=== PATIENT | female | born 1980 | race American Indian/Alaskan Native ===

== ENCOUNTER 2020-03-28 08:03 | Emergency (ER) | payer SELFPAY ==
[2020-03-28 08:12] VITALS: BP 136/75
--- NOTE | 2020-03-28 09:24 | Emergency Department Report ---
ED ENT HPI - General Chief complaint: Dental/Oral Stated complaint: TOOTHACHE Time Seen by Provider: 03/28/20 09:16 Source: patient Mode of arrival: Ambulatory Limitations: No Limitations - History of Present Illness MD complaint: tooth pain -: Gradual Location: tooth # Severity: mild, moderate Quality: dull Consistency: constant Improves with: none Worsens with: eating Context- Dental: history of dental caries, poor dental care Associated Symptoms: toothache - Related Data Previous Rx's Medication Instructions Recorded Last Taken Type Amoxicillin [Amoxicillin TAB] 875 mg PO BID #20 tablet 03/28/20 Unknown Rx Chlorhexidine Mouthwash [Peridex] 15 ml MM BID #1 bottle 03/28/20 Unknown Rx Ketorolac [Toradol] 10 mg PO Q6H PRN #15 tablet 03/28/20 Unknown Rx Lidocaine Viscous 2% 5 ml MM Q3H PRN #120 udc 03/28/20 Unknown Rx Allergies Allergy/AdvReac Type Severity Reaction Status Date / Time No Known Allergies Allergy Unverified 03/28/20 08:07 ED Dental HPI - General Chief complaint: Dental/Oral Stated complaint: TOOTHACHE Time Seen by Provider: 03/28/20 09:16 Source: patient Mode of arrival: Ambulatory Limitations: No Limitations - Related Data Previous Rx's Medication Instructions Recorded Last Taken Type Amoxicillin [Amoxicillin TAB] 875 mg PO BID #20 tablet 03/28/20 Unknown Rx Chlorhexidine Mouthwash [Peridex] 15 ml MM BID #1 bottle 03/28/20 Unknown Rx Ketorolac [Toradol] 10 mg PO Q6H PRN #15 tablet 03/28/20 Unknown Rx Lidocaine Viscous 2% 5 ml MM Q3H PRN #120 udc 03/28/20 Unknown Rx Allergies Allergy/AdvReac Type Severity Reaction Status Date / Time No Known Allergies Allergy Unverified 03/28/20 08:07 ED Review of Systems ROS: Stated complaint: TOOTHACHE Other details as noted in HPI Comment: All other systems reviewed and negative ED Past Medical Hx - Past Medical History Previous Medical History?: No - Surgical History Past Surgical History?: No - Social History Smoking Status: Never Smoker Substance Use Type: None - Medications Home Medications: Home Medications Medication Instructions Recorded Confirmed Last Taken Type Amoxicillin [Amoxicillin TAB] 875 mg PO BID #20 tablet 03/28/20 Unknown Rx Chlorhexidine Mouthwash [Peridex] 15 ml MM BID #1 bottle 03/28/20 Unknown Rx Ketorolac [Toradol] 10 mg PO Q6H PRN #15 tablet 03/28/20 Unknown Rx Lidocaine Viscous 2% 5 ml MM Q3H PRN #120 udc 03/28/20 Unknown Rx ED Physical Exam - General Limitations: No Limitations General appearance: alert, in no apparent distress - Head Head exam: Present: atraumatic, normocephalic - Eye Eye exam: Present: normal appearance, PERRL, EOMI Pupils: Present: normal accommodation - ENT ENT exam: Present: normal exam, normal orophraynx, mucous membranes moist, other (Dental caries noted with some adjacent gingival erythema. Mild swelling is noted with evidence of an early abscess formation. Airways patent tongue and uvula is midline no exudate. No drooling voice is normal. Neck is supple no lymphadenopathy swallows well) - Neck Neck exam: Present: normal inspection. Absent: meningismus, lymphadenopathy - Respiratory Respiratory exam: Present: normal lung sounds bilaterally. Absent: respiratory distress - Cardiovascular Cardiovascular Exam: Present: regular rate, normal rhythm. Absent: systolic murmur, diastolic murmur, rubs, gallop - GI/Abdominal GI/Abdominal exam: Present: soft, normal bowel sounds - Extremities Exam Extremities exam: Present: normal inspection - Back Exam Back exam: Present: normal inspection - Neurological Exam Neurological exam: Present: alert, oriented X3 - Psychiatric Psychiatric exam: Present: normal affect, normal mood - Skin Skin exam: Present: warm, dry, intact, normal color. Absent: rash ED Course Vital Signs 03/28/20 08:07 Temperature 98.4 F Pulse Rate 80 Respiratory 16 Rate Blood Pressure 136/75 O2 Sat by Pulse 99 Oximetry Critical care attestation.: If time is entered above; I have spent that time in minutes in the direct care of this critically ill patient, excluding procedure time. ED Disposition Clinical Impression: Dentalgia, Infected dental caries Disposition: TO HOME OR SELFCARE Is pt being admited?: No Does the pt Need Aspirin: No Condition: Stable Instructions: Dental Caries (ED), Toothache (ED) Prescriptions: Amoxicillin [Amoxicillin TAB] 875 mg PO BID #20 tablet Lidocaine Viscous 2% 5 ml MM Q3H PRN #120 udc PRN Reason: Pain, Moderate (4-6) Chlorhexidine Mouthwash [Peridex] 15 ml MM BID #1 bottle Ketorolac [Toradol] 10 mg PO Q6H PRN #15 tablet PRN Reason: Pain Referrals: [facility] [Provider Group] - 3-5 Days
== END 2020-03-28 09:43 | disposition home or self-care (01) ==
LOC: ED 08:03
DX: K02.9 Dental caries, unspecified (principal); Z79.2 Long term (current) use of antibiotics; Z79.899 Other long term (current) drug therapy
CPT/HCPCS: 99282

== ENCOUNTER 2020-04-21 09:50 | Emergency (ER) | payer SELFPAY ==
[2020-04-21 09:56] VITALS: BP 131/74
--- NOTE | 2020-04-21 09:58 | Event Note ---
ED Screening Note Date of service: 04/21/20 Time: 09:55 ED Screening Note: 39-year-old -[place] female presents to the emergency room for urinary issues. This initial assessment/diagnostic orders/clinical plan/treatment(s) is/are subject to change based on patients health status, clinical progression and re- assessment by fellow clinical providers in the ED. Further treatment and workup at subsequent clinical providers discretion. Patient/guardian urged not to elope from the ED as their condition may be serious if not clinically assessed and managed. Initial orders include: Urinalysis hCG
[2020-04-21 10:28] LABS: HCG Qualitative,Urine Negative (Negative)
[2020-04-21 10:36] LABS: Bacteria,Urine 1+ /HPF (Negative); Bilirubin,Urine NEG (Negative); Blood,Urine NEG (Negative); Color,Urine Yellow (Yellow); Mucus,Urine 3+ /HPF; Protein,Urine <15 mg/dL mg/dL (Negative); Urobilinogen,Urine < 2.0 mg/dL (<2.0)
--- NOTE | 2020-04-21 12:16 | Emergency Department Report ---
ED Female HPI - General Chief complaint: Urogenital-Female Stated complaint: BACK/SIDE PAIN Time Seen by Provider: 04/21/20 11:55 Source: patient Mode of arrival: Ambulatory Limitations: No Limitations - History of Present Illness Initial comments: This is a 39-year-old female nontoxic, well nourished in appearance, no acute signs of distress presents to the ED with c/o of vaginal discharge and irritation. Patient dated the symptoms started after taking amoxicillin last week. Patient also has a secondary complaint of acute on chronic lower back pain. Patient denies any trauma or injuries. Denies any radiation of pain. Patient stated pain is aggravated with movement and resolve with rest. Patient denies any vaginal pain or swelling. Patient denies any vaginal ulcers or lesions. Patient denies any nausea, vomiting, chest pain, shortness of breathe, fever, chills, headache, back pain, numbness, tingling, stiff neck. Denies any bladder or bowel instability. Patient denies any urinary symptoms. Patient denies any allergies or PMH. Patient did she wants to be tested for STDs but does not want empirical treatment as having low suspicious. MD Complaint: vaginal discharge -: days(s) Radiation: non-radiating Severity: mild Severity scale (0 -10): 3 Quality: aching Consistency: intermittent Improves with: movement Worsens with: other (rest) Are you Now?: No Associated Symptoms: vaginal discharge. denies: vaginal bleeding, abdominal pain, nausea/vomiting, fever/chills, headaches, loss of appetite, dysuria, hematuria, rash, seizure, shortness of breath, syncope, weakness - Related Data Sexually active: Yes Previous Rx's Medication Instructions Recorded Last Taken Type Amoxicillin [Amoxicillin TAB] 875 mg PO BID #20 tablet 03/28/20 Unknown Rx Chlorhexidine Mouthwash [Peridex] 15 ml MM BID #1 bottle 03/28/20 Unknown Rx Ketorolac [Toradol] 10 mg PO Q6H PRN #15 tablet 03/28/20 Unknown Rx Lidocaine Viscous 2% 5 ml MM Q3H PRN #120 udc 03/28/20 Unknown Rx Cyclobenzaprine [Flexeril] 10 mg PO QHS PRN #10 tablet 04/21/20 Unknown Rx Naproxen 500 mg PO Q12H PRN #12 tablet 04/21/20 Unknown Rx metroNIDAZOLE [Flagyl] 500 mg PO Q12HR #14 tab 04/21/20 Unknown Rx Allergies Allergy/AdvReac Type Severity Reaction Status Date / Time No Known Allergies Allergy Unverified 03/28/20 08:07 ED Review of Systems ROS: Stated complaint: BACK/SIDE PAIN Other details as noted in HPI Comment: All other systems reviewed and negative Constitutional: denies: chills, fever Eyes: denies: eye pain, eye discharge, vision change ENT: denies: ear pain, throat pain Respiratory: denies: cough, shortness of breath, wheezing Cardiovascular: denies: chest pain, palpitations Endocrine: no symptoms reported Gastrointestinal: denies: abdominal pain, nausea, vomiting, diarrhea Genitourinary: discharge. denies: urgency, dysuria, frequency, hematuria, abnormal menses, dyspareunia Musculoskeletal: back pain. denies: joint swelling, arthralgia Skin: denies: rash, lesions Neurological: denies: headache, weakness, paresthesias Psychiatric: denies: anxiety, depression Hematological/Lymphatic: denies: easy bleeding, easy bruising ED Past Medical Hx - Past Medical History Previous Medical History?: No - Surgical History Past Surgical History?: No - Social History Smoking Status: Never Smoker Substance Use Type: Alcohol - Medications Home Medications: Home Medications Medication Instructions Recorded Confirmed Last Taken Type Amoxicillin [Amoxicillin TAB] 875 mg PO BID #20 tablet 03/28/20 Unknown Rx Chlorhexidine Mouthwash [Peridex] 15 ml MM BID #1 bottle 03/28/20 Unknown Rx Ketorolac [Toradol] 10 mg PO Q6H PRN #15 tablet 03/28/20 Unknown Rx Lidocaine Viscous 2% 5 ml MM Q3H PRN #120 udc 03/28/20 Unknown Rx Cyclobenzaprine [Flexeril] 10 mg PO QHS PRN #10 tablet 04/21/20 Unknown Rx Naproxen 500 mg PO Q12H PRN #12 tablet 04/21/20 Unknown Rx metroNIDAZOLE [Flagyl] 500 mg PO Q12HR #14 tab 04/21/20 Unknown Rx ED Physical Exam - General Limitations: No Limitations General appearance: alert, in no apparent distress - Head Head exam: Present: atraumatic, normocephalic - Eye Eye exam: Present: normal appearance - Neck Neck exam: Present: normal inspection, full ROM. Absent: tenderness, meningismus, lymphadenopathy - Respiratory Respiratory exam: Absent: respiratory distress - Cardiovascular Cardiovascular Exam: Present: regular rate - GI/Abdominal GI/Abdominal exam: Present: soft, normal bowel sounds. Absent: distended, tenderness, guarding, rebound, rigid, diminished bowel sounds - External exam: Present: normal external exam, other (Palliative Care Nurse Practitioner Juana RN present during exam). Absent: erythema, swelling, lesions, lacerations, ecchymosis, bleeding Speculum exam: Present: cervical discharge, other (Palliative Care Nurse Practitioner Juana RN present during exam). Absent: erythema, vaginal discharge, vaginal bleeding, foreign body, tissue, laceration Bi-manual exam: Present: normal bi-manual exam, other (Palliative Care Nurse Practitioner Juana RN present during exam). Absent: cervical motion tendernes, adnexal tenderness, adnexal mass, uterine enlargement, uterine tenderness - Extremities Exam Extremities exam: Present: normal inspection, full ROM - Back Exam Back exam: Present: normal inspection, full ROM, paraspinal tenderness (lumbar paraspinal). Absent: tenderness, CVA tenderness (R), CVA tenderness (L), muscle spasm, vertebral tenderness, rash noted - Expanded Back Exam Expanded Back exam: Absent: saddle anesthesia Back exam: Negative Straight Leg Raising: Left, Right - Neurological Exam Neurological exam: Present: alert, oriented X3, normal gait - Psychiatric Psychiatric exam: Present: normal affect, normal mood - Skin Skin exam: Present: warm, dry, intact, normal color. Absent: rash ED Course Vital Signs 04/21/20 09:53 Temperature 98.3 F Pulse Rate 92 H Respiratory 16 Rate Blood Pressure 131/74 O2 Sat by Pulse 100 Oximetry - Reevaluation(s) Reevaluation #1: 04/21/20 12:17 Patient is speaking in full sentences with no signs of distress noted. ED Medical Decision Making - Lab Data Lab Results 04/21/20 Range/Units Unknown Urine Color Yellow (Yellow) Urine Turbidity Clear (Clear) Urine pH 5.0 (5.0-7.0) Ur Specific [place] 1.028 (1.003-1.030) Urine Protein <15 mg/dl (Negative) mg/dL Urine Glucose (UA) Neg (Negative) mg/dL Urine Ketones Neg (Negative) mg/dL Urine Blood Neg (Negative) Urine Nitrite Neg (Negative) Ur Reducing Substances Not Reportable Urine Bilirubin Neg (Negative) Urine Ictotest Not Reportable Urine Urobilinogen < 2.0 (<2.0) mg/dL Ur Leukocyte Esterase Neg (Negative) Urine WBC (Auto) 1.0 (0.0-6.0) /HPF Urine RBC (Auto) 15.0 (0.0-6.0) /HPF U Epithel Cells (Auto) 10.0 (0-13.0) /HPF Urine Bacteria (Auto) 1+ (Negative) /HPF Urine Mucus 3+ /HPF Urine HCG, Qual Negative (Negative) - Medical Decision Making This is a 39-year-old male that presents with low back strain and BV. Patient is stable was examined by me. There is no abdominal tenderness. No pelvic pain. There is no spinal tenderness. There is no cauda equina syndrome during examination. No bladder or bowel instability. UA obtained. Wet prep obtained. Gonorrhea chlamydia swab pending. Patient is discharged with muscle relaxant and Motrin. Patient was instructed not to operate any machinery while taking muscle relaxant as they cause her drowsiness. Patient was referred to Follow-up with a primary care doctor in 3-5 days or if symptoms worsen and continue return to emergency room as soon as possible. At time of discharge, the patient does not seem toxic or ill in appearance. No acute signs of distress noted. Patient agrees to discharge treatment plan of care. No further questions noted by the patient. This chart is dictated with using [employer]ation [employer] Critical care attestation.: If time is entered above; I have spent that time in minutes in the direct care of this critically ill patient, excluding procedure time. ED Disposition Clinical Impression: Bacterial vaginosis Low back strain Qualifiers: Encounter type: initial encounter Qualified Code(s): S39.012A - Strain of muscle, fascia and tendon of lower back, initial encounter Disposition: DC- TO HOME OR SELFCARE Is pt being admited?: No Does the pt Need Aspirin: No Condition: Stable Instructions: Bacterial Vaginosis (ED), Low Back Strain (ED) Additional Instructions: Follow-up with a primary care doctor in 3-5 days or if symptoms worsen and continue return to emergency room as soon as possible. Take naproxen and Flexeril as prescribed. Do not operate heavy machinery while taking Flexeril due to sedation Prescriptions: Cyclobenzaprine [Flexeril] 10 mg PO QHS PRN #10 tablet PRN Reason: Muscle Spasm metroNIDAZOLE [Flagyl] 500 mg PO Q12HR #14 tab Naproxen 500 mg PO Q12H PRN #12 tablet PRN Reason: Pain , Severe (7-10) Referrals: PRIMARY CARE, [Primary Care Provider] - 3-5 Days SIVAN MILTON MD [Staff Physician] - 3-5 Days [facility] [Provider Group] - 3-5 Days Forms: Work/School Release Form(ED)
== END 2020-04-21 13:31 | disposition home or self-care (01) ==
LOC: ED 09:50
DX: S39.012A Strain of muscle, fascia and tendon of lower back, initial encounter (principal); N76.0 Acute vaginitis; B96.89 Other specified bacterial agents as the cause of diseases classified elsewhere; Z79.899 Other long term (current) drug therapy; X58.XXXA Exposure to other specified factors, initial encounter; Y93.89 Activity, other specified; Y92.89 Other specified places as the place of occurrence of the external cause; Y99.8 Other external cause status
CPT/HCPCS: 81001; 81025; 87210; 87591

== ENCOUNTER 2020-07-14 13:04 | Emergency (ER) | payer SELFPAY ==
[2020-07-14 13:23] VITALS: BP 118/66
--- NOTE | 2020-07-14 13:28 | Emergency Department Report ---
Chief Complaint: Upper Respiratory Infection Stated Complaint: POSSIBLE SINUS INFECTION Time Seen by Provider: 07/14/20 13:22 - HPI History of Present Illness: Patient is a 39-year-old female presents emergency room with complaints of congestion, dry throat, mild cough. She denies any fever, nausea, vomiting, diarrhea, rhinorrhea, shortness of breath, chest pain, abdominal pain, ear pain. She states that she has had these symptoms for approximately a month. He states that she took TheraFlu last week but otherwise has not tried any treatments. She states that she did travel to [place] last weekend. No past medical history. No allergies medications. She is currently on her menstrual cycle. Vitals are normal On exam: Non toxic appearing, no acute distress atraumatic, normocephalic normal appearance of the eyes, PERRL, EOMI, no periorbital edema or ecchymosis moist mucus membranes, normal oropharynx, normal TMs and canals bilaterally, mild edema of the nasal turbinates, no purulent drainage, no sinus tenderness palpation bilaterally regular heart rate and rhythm, no gallops, no rubs, no murmurs breath sounds are clear bilaterally, no w/r/r, no wheezing, no rales, no rhonchi A&O x4, no focal neuro deficit skin is warm, dry, intact Symptoms likely related to allergies as this has been occurring seasonally since May She has no clinical signs of bacterial sinusitis or bacterial rhinosinusitis She has no clinical signs of bacterial pneumonia or bacterial bronchitis Discussed [id number] treatment with patient Discussed the importance of primary care follow-up for resolution of symptoms advised pt Please use Flonase nasal spray [id number]. May take Mucinex as well. May either take Zyrtec or Claritin. Increase your water intake. May use a humidifier. Drink warm teas eat warm soup broths. Follow-up with a primary care doctor for reexamination. Return to emergency room any new or worsening symptoms. Patient given the appropriate resources Discuss strict return precautions Medical screening examination performed and there is no threat to life or limb at this time - Exam Vital Signs: Vital Signs 07/14/20 13:21 Temperature 98.3 F Pulse Rate 88 Respiratory 20 Rate Blood Pressure 118/66 O2 Sat by Pulse 100 Oximetry MSE screening note: Focused history and physical exam performed. Due to findings the following was ordered: ED Disposition for MSE Clinical Impression: Encounter for medical screening examination Disposition: Z MED SCREENING EXAM-LEFT Is pt being admited?: No Does the pt Need Aspirin: No Condition: Stable Additional Instructions: Please use Flonase nasal spray [id number]. May take Mucinex as well. May either take Zyrtec or Claritin. Increase your water intake. May use a humidifier. Drink warm teas eat warm soup broths. Follow-up with a primary care doctor for reexamination. Return to emergency room any new or worsening symptoms. Referrals: SIVAN MILTON MD [Staff Physician] - 3-[address] [facility] [Provider Group] - 3-5 Days [facility] [Outside] - 3-5 Days Time of Disposition: 13:27 Print Language: BULGARIAN
== END 2020-07-14 13:42 | disposition left against medical advice (07) ==
LOC: ED 13:04
DX: Z00.8 Encounter for other general examination (principal); Z53.21 Procedure and treatment not carried out due to patient leaving prior to being seen by health care provider

== ENCOUNTER 2020-09-26 09:40 | Emergency (ER) | payer SELFPAY ==
[2020-09-26 09:57] VITALS: BP 122/70
--- NOTE | 2020-09-26 10:21 | Emergency Department Report ---
ED General Adult HPI - General Chief complaint: Extremity Problem,Nontraumatic Stated complaint: RT SHOULDER PAIN/COUGH/CHIN AND NOSE BREAK OUT Time Seen by Provider: 09/26/20 10:02 Source: patient Mode of arrival: Ambulatory Limitations: No Limitations - History of Present Illness Initial comments: Patient is a 39-year-old -[place] female that comes to the emergency room with 3 complaints. #1 right shoulder pain after exercising #2 rash on her face, new she reports that she is wearing a mask 3 rash on her pubic area after using a new razor -: Gradual, days(s) Associated Symptoms: denies other symptoms, rash. denies: confusion, chest pain, cough, diaphoresis, fever/chills, headaches, loss of appetite, malaise, nausea/vomiting, seizure, shortness of breath, syncope, weakness - Related Data Previous Rx's Medication Instructions Recorded Last Taken Type predniSONE [Deltasone] 20 mg PO DAILY #5 tablet 09/26/20 Unknown Rx Allergies Allergy/AdvReac Type Severity Reaction Status Date / Time No Known Allergies Allergy Unverified 03/28/20 08:07 ED Review of Systems ROS: Stated complaint: RT SHOULDER PAIN/COUGH/CHIN AND NOSE BREAK OUT Other details as noted in HPI Comment: All other systems reviewed and negative ED Past Medical Hx - Past Medical History Previous Medical History?: Yes Additional medical history: Bronchitis - Surgical History Past Surgical History?: No - Family History Family history: no significant - Social History Smoking Status: Never Smoker Substance Use Type: Alcohol - Medications Home Medications: Home Medications Medication Instructions Recorded Confirmed Last Taken Type predniSONE [Deltasone] 20 mg PO DAILY #5 tablet 09/26/20 Unknown Rx ED Physical Exam - General Limitations: No Limitations General appearance: alert, in no apparent distress - Head Head exam: Present: atraumatic, normocephalic - Eye Eye exam: Present: normal appearance - ENT ENT exam: Present: mucous membranes moist - Neck Neck exam: Present: normal inspection - Respiratory Respiratory exam: Present: normal lung sounds bilaterally. Absent: respiratory distress - Cardiovascular Cardiovascular Exam: Present: regular rate, normal rhythm. Absent: systolic murmur, diastolic murmur, rubs, gallop - GI/Abdominal GI/Abdominal exam: Present: soft, normal bowel sounds - Extremities Exam Extremities exam: Present: normal inspection - Back Exam Back exam: Present: normal inspection - Neurological Exam Neurological exam: Present: alert, oriented X3 - Psychiatric Psychiatric exam: Present: normal affect, normal mood - Skin Skin exam: Present: warm, dry, intact, normal color. Absent: rash ED Course Vital Signs 09/26/20 09:53 Temperature 98.2 F Pulse Rate 89 Respiratory 20 Rate Blood Pressure 122/70 O2 Sat by Pulse 99 Oximetry ED Medical Decision Making - Radiology Data Radiology results: report reviewed, image reviewed nap - Medical Decision Making Lab Results 09/26/20 Range/Units Unknown Urine Color Yellow (Yellow) Urine Turbidity Slightly-cloudy (Clear) Urine pH 5.0 (5.0-7.0) Ur Specific [place] 1.025 (1.003-1.030) Urine Protein <15 mg/dl (Negative) mg/dL Urine Glucose (UA) Neg (Negative) mg/dL Urine Ketones Neg (Negative) mg/dL Urine Blood Neg (Negative) Urine Nitrite Neg (Negative) Urine Bilirubin Neg (Negative) Urine Urobilinogen < 2.0 (<2.0) mg/dL Ur Leukocyte Esterase Neg (Negative) Urine WBC (Auto) 2.0 (0.0-6.0) /HPF Urine RBC (Auto) 3.0 (0.0-6.0) /HPF U Epithel Cells (Auto) 19.0 H (0-13.0) /HPF Urine HCG, Qual Negative (Negative) Vital Signs 09/26/20 09:53 Temperature 98.2 F Pulse Rate 89 Respiratory 20 Rate Blood Pressure 122/70 O2 Sat by Pulse 99 Oximetry face rash most likely detergent related encouraged to wash masks in water and mild soap pubic rash from new razor instructed not to use razor but to wax shoulder xray neg dc home with dc instructions including pcp follow up. Prednisone for her rash. She verbalizes understanding of plan of care. - Differential Diagnosis dermititis/std/folliculitis/strain Critical care attestation.: If time is entered above; I have spent that time in minutes in the direct care of this critically ill patient, excluding procedure time. ED Disposition Clinical Impression: Folliculitis, Dermatitis of face, Shoulder pain, right Disposition: DC-01 TO HOME OR SELFCARE Is pt being admited?: No Does the pt Need Aspirin: No Condition: Stable Instructions: Musculoskeletal Pain, Folliculitis Additional Instructions: STOP SHAVING WAX WE DISCUSSED MILD SOAP FOR YOUR FACE [facility] ORDERED FOLLOW UP WITH PCP REFERRAL BELOW Prescriptions: predniSONE [Deltasone] 20 mg PO DAILY #5 tablet Referrals: PRIMARY CAREMD [Primary Care Provider] - 3-5 Days SVIAN MILTON MD [Staff Physician] - 3-5 Days Forms: Work/School Release Form(ED) Time of Disposition: 13:35
[2020-09-26 12:01] LABS: Bilirubin,Urine NEG (Negative); Blood,Urine NEG (Negative); Color,Urine Yellow (Yellow); Protein,Urine <15 mg/dL mg/dL (Negative); Urobilinogen,Urine < 2.0 mg/dL (<2.0)
[2020-09-26 12:39] LABS: HCG Qualitative,Urine Negative (Negative)
--- NOTE | 2020-09-26 13:28 | XRay Report ---
XR chest routine 2V INDICATION / CLINICAL INFORMATION: pain. COMPARISON: None available. FINDINGS: SUPPORT DEVICES: None. HEART /PULMONARY VASCULATURE: No significant abnormality. LUNGS / PLEURA: No significant pulmonary or pleural abnormality. No pneumothorax. ADDITIONAL FINDINGS: No significant additional findings. IMPRESSION: 1. No acute findings. Signer Name: Papo Fragoso MD Signed: 09/26/2020 1:23 PM Workstation Name: [id number]
== END 2020-09-26 14:22 | disposition home or self-care (01) ==
LOC: ED 09:40
DX: L73.9 Follicular disorder, unspecified (principal); L30.8 Other specified dermatitis; M25.511 Pain in right shoulder; Z79.899 Other long term (current) drug therapy
CPT/HCPCS: 71046; 81001; 81025; 99283

== ENCOUNTER 2020-10-03 05:49 | Emergency (ER) | payer SELFPAY ==
[2020-10-03 06:23] VITALS: BP 110/94
== END 2020-10-03 07:38 ==
LOC: ED 05:49
DX: M25.561 Pain in right knee (principal); Z53.21 Procedure and treatment not carried out due to patient leaving prior to being seen by health care provider

== ENCOUNTER 2020-10-03 10:58 | Emergency (ER) | payer SELFPAY ==
[2020-10-03 11:10] VITALS: BP 120/72
--- NOTE | 2020-10-03 11:50 | Emergency Department Report ---
Chief Complaint: Extremity Injury, Lower Stated Complaint: RT KNEE PAIN - HPI History of Present Illness: 39-year-old female patient presents emergency department with complaints of traumatic right knee pain occurring yesterday. States she was sent to the emergency department by her occupational health department. Due to prolonged wait time, patient no longer wishes to be evaluated, and is requesting discharge paperwork. Patient ambulatory and talking on Bluetooth device throughout entirety of medical screening exam, no distress. - ROS Review of Systems: Patient refused. - Exam Vital Signs: Vital Signs 10/03/20 11:09 Temperature 98.2 F Pulse Rate 72 Respiratory 18 Rate Blood Pressure 120/72 [Right] O2 Sat by Pulse 95 Oximetry Physical Exam: Patient refused. MSE screening note: Focused history and physical exam performed. Due to findings the following was ordered: ED Medical Decision Making - Medical Decision Making Patient is refusing MSE at this time. She is requesting documentation for her work to prove she was in the emergency department. ED Disposition for MSE Clinical Impression: Eloped from emergency department Disposition: MED SCREENING EXAM-LEFT Is pt being admited?: No Does the pt Need Aspirin: No Condition: Stable Time of Disposition: 11:50
== END 2020-10-03 12:30 | disposition left against medical advice (07) ==
LOC: ED 10:58
DX: M25.561 Pain in right knee (principal); Z53.21 Procedure and treatment not carried out due to patient leaving prior to being seen by health care provider